=== PATIENT | male | born 1970 | race Caucasian/White ===

== ENCOUNTER 2019-07-30 10:31 | Emergency (ER) | payer OTHER ==
[2019-07-30 11:03] LABS: CHLORIDE,CL 104 mmol/L (98-107); SODIUM,NA 140 mmol/L (136-145)
[2019-07-30] MEDS: Ondansetron 4 MG/2 ML SDV IVPUSH ONE (11:09)
[2019-07-30] MEDS: Morphine 2 MG/ML Syringe IVPUSH ONE (11:10)
--- NOTE | 2019-07-30 11:20 | EDM.PDOC ---
ED HPI GENERAL MEDICAL PROBLEM - General Chief Complaint: Trauma Stated Complaint: right arm pain Time Seen by Provider: 07/30/19 10:34 Source of Information: Reports: Patient History Limitations: Reports: No Limitations - History of Present Illness INITIAL COMMENTS - FREE TEXT/NARRATIVE: Patient brought to ER via EMS from local worksite after he fell into a 5 foot hole and landed on right arm. Immediately had pain in right shoulder area. Tried to sit up but passed out briefly from the pain. Denies hitting head/neck pain/other acute pain or injury. Trauma code called initially but downgraded after initial assessment/physical exam/xrays. Denies chronic medical problems. Past Medical History - Past Health History Medical/Surgical History: Denies Medical/Surgical History Social & Family History - Tobacco Use Smoking Status *Q: Never Smoker - Caffeine Use Caffeine Use: Reports: None - Alcohol Use Alcohol Use History: Yes Alcohol Use Frequency: Rarely - Recreational Drug Use Recreational Drug Use: No Drug Use in Last 12 Months: No Review of Systems - Review of Systems Review Of Systems: See Below Constitutional: Reports: No Symptoms Eyes: Reports: No Symptoms Ears: Reports: No Symptoms Nose: Reports: No Symptoms Mouth/Throat: Reports: No Symptoms Respiratory: Reports: No Symptoms. Denies: Shortness of Breath, Pleuritic Chest Pain Cardiovascular: Reports: No Symptoms. Denies: Chest Pain GI/Abdominal: Reports: Nausea (mild nausea from pain). Denies: Abdominal Pain, Vomiting Genitourinary: Reports: No Symptoms Musculoskeletal: Reports: Shoulder Pain (right). Denies: Neck Pain, Back Pain, Hand Pain, Leg Pain, Foot Pain Skin: Reports: No Symptoms Neurological: Reports: No Symptoms. Denies: Headache, Numbness, Paresthesia, Tingling Psychiatric: Reports: No Symptoms ED EXAM, GENERAL - Physical Exam Exam: See Below Exam Limited By: No Limitations General Appearance: Alert, WD/WN, No Apparent Distress Eye Exam: Bilateral Eye: EOMI, PERRL Ears: Normal External Exam, Hearing Grossly Normal Nose: No: Nasal Deformity, Nasal Swelling, Nasal Drainage Throat/Mouth: Normal Lips, Normal Voice, No Airway Compromise Head: Atraumatic, Normocephalic Neck: Normal Inspection, Supple, Non-Tender, Full Range of Motion. No: Tender Lateral, Tender Midline Respiratory/Chest: No Respiratory Distress, Lungs Clear, Normal Breath Sounds, No Accessory Muscle Use, Chest Non-Tender Cardiovascular: Regular Rate, Rhythm, No Edema, No Murmur GI/Abdominal: Normal Bowel Sounds, Soft, Non-Tender, Pelvis Stable (Male) Exam: Deferred Rectal (Males) Exam: Deferred Back Exam: Normal Inspection. No: CVA Tenderness (L), CVA Tenderness (R), Muscle Spasm, Paraspinal Tenderness, Vertebral Tenderness Extremities: Normal Capillary Refill, Limited Range of Motion (right shoulder. Pain with active and passive movement. Says he cannot initiate much in the way of movement when he tries to move his right arm. Pain in shoulder area. No pain with palpation along humerus/elbow/forearm/wrist/hand on right. No focal findings left arm/legs.) Neurological: Alert, Oriented, Normal Cognition, Normal Gait, Other (equal strength hand grasps) Psychiatric: Normal Affect, Normal Mood Skin Exam: Warm, Dry, Intact, Normal Color. No: Ecchymosis, Erythema, Wound/ Incision Course - Orders/Labs/Meds Orders: Active Orders 24 hr Category Date Time Status Chest 2V [CR] Routine Exams 07/30/19 10:53 Taken Shoulder Comp Rt [CR] Routine Exams 07/30/19 10:52 Taken Shoulder wo Cont Rt [CT] Stat Exams 07/30/19 11:06 Ordered Labs: Laboratory Tests 07/30/19 07/30/19 Range/Units 10:40 10:40 WBC 5.8 (4.0-10.2) K/uL RBC 5.00 (4.33-5.41) M/uL Hgb 14.5 (13.1-16.8) g/dL Hct 42.4 (39.0-49.0) % MCV 84.8 (84.0-98.0) fL MCH 29.0 (28.2-33.3) pg MCHC 34.2 (31.7-36.0) g/dL RDW 13.1 (11.2-14.1) % Plt Count 269 (150-350) K/uL Neut % (Auto) 51.8 (45.0-80.0) % Lymph % (Auto) 34.4 (10.0-50.0) % [place] % (Auto) 8.9 (2.0-14.0) % Eos % (Auto) 4.6 (0.0-5.0) % Baso % (Auto) 0.3 (0.0-2.0) % Neut # (Auto) 3.01 (1.40-7.00) K/uL Lymph # (Auto) 2.00 (0.50-3.50) K/uL [place] # (Auto) 0.52 (0.00-1.00) K/uL Eos # (Auto) 0.27 (0.00-0.50) K/uL Baso # (Auto) 0.02 (0.00-0.20) K/uL Sodium 140 (136-145) mmol/L Potassium 3.7 (3.5-5.1) mmol/L Chloride 104 (98-107) mmol/L Carbon Dioxide 26.5 (21.0-32.0) mmol/L BUN 16 (7-18) mg/dL Creatinine 0.90 (0.51-1.17) mg/dL Est Cr Clr Drug Dosing TNP Estimated GFR (MDRD) > 60 mL/min Glucose 120 H (74-106) mg/dL Calcium 9.0 (8.5-10.1) mg/dL Magnesium 1.8 (1.8-2.4) mg/dL Total Bilirubin 0.5 (0.2-1.0) mg/dL AST 20 (15-37) U/L ALT 33 (12-78) U/L Alkaline Phosphatase 74 (46-116) IU/L Total Protein 7.6 (6.4-8.2) g/dL Albumin 4.0 (3.4-5.0) g/dL Amylase 38 (25-115) U/L Lipase 141 (73-393) U/L Meds: Medications Discontinued Medications Generic Name Dose Route Start Last Admin Trade Name Freq PRN Reason Stop Dose Admin Morphine Sulfate 4 mg 07/30/19 11:05 07/30/19 11:10 Morphine IVPUSH 07/30/19 11:06 4 mg ONETIME ONE Administration Ondansetron HCl 4 mg 07/30/19 11:04 07/30/19 11:09 Zofran IVPUSH 07/30/19 11:05 4 mg ONETIME ONE Administration - Radiology Interpretation Free Text/Narrative:: Xray of chest/right shoulder non-focal. CT obtained to further evaluate for acute shoulder injury given pain complaint and inability to move the shoulder. This was read as negative for acute bony injury by Radiology. They recommended follow up MRI to look for soft tissue injury/joint tear. CT Results Date: 07/30/19 CT Results Time: 11:53 - Re-Assessments/Exams Free Text/Narrative Re-Assessment/Exam: 07/30/19 12:21 No other focal injuries identified during physical exam. Vital signs stable. Patient received MS and Zofran. Labs overall unremarkable. Xray findings as noted above. Suspect AC injury/other joint injury or tears based on patient's inability to move the shoulder/arm well. Follow up at [facility] walk-[facility] clinic with [place] or [facility] [place] recommended. Patient says he plans on following up with [facility] where he gets his medical care routinely. Will likely need MRI of joint for further evaluation. Shoulder immobilizer applied by nursing staff for comfort and protection of arm. Patient declined further pain meds and will use OTC as needed. Precautions reviewed. To follow up at ER if he has sudden acute new/worsening problems. Otherwise to follow up at [facility] tomorrow or early next week. Patient in agreement with plan. Departure - Departure Time of Disposition: 12:08 Disposition: Home, Self-Care 01 Condition: Good Clinical Impression: Fall into hole as cause of accidental injury Right shoulder injury Qualifiers: Encounter type: initial encounter Qualified Code(s): S49.91XA - Unspecified injury of right shoulder and upper arm, initial encounter - Discharge Information *PRESCRIPTION DRUG MONITORING PROGRAM REVIEWED*: Not Applicable *COPY OF PRESCRIPTION DRUG MONITORING REPORT IN PATIENT MARILIN: Not Applicable Instructions: How to Use a Shoulder Immobilizer Referrals: PCP,None [Primary Care Provider] - Forms: ED Department Discharge Additional Instructions: [facility] to assess for soft tissue injury/tears. Ice/Tylenol/Ibuprofen or Aleve to help with pain. Shoulder immobilizer to protect arm. Follow up otherwise if you have sudden worsening problems. Sepsis Event Note - Focused Exam Date Exam was Performed: 07/30/19 Time Exam was Performed: 12:13 - My Orders Last 24 Hours: My Active Orders 07/30/19 10:52 Shoulder Comp Rt [CR] Routine 07/30/19 10:53 Chest 2V [CR] Routine 07/30/19 11:06 Shoulder wo Cont Rt [CT] Stat - Assessment/Plan Last 24 Hours: My Active Orders 07/30/19 10:52 Shoulder Comp Rt [CR] Routine 07/30/19 10:53 Chest 2V [CR] Routine 07/30/19 11:06 Shoulder wo Cont Rt [CT] Stat
== END 2019-07-30 12:19 | disposition home or self-care (01) ==
LOC: LL.ED 10:31
DX: S49.91XA Unspecified injury of right shoulder and upper arm, initial encounter (principal); W17.2XXA Fall into hole, initial encounter; Y99.0 Civilian activity done for income or pay
CPT/HCPCS: 36415; 56420; 71046; 73030-RT; 73200-RT; 80053; 82150; 83690; 83735; 85025; 96374; 96375; 99284-25; J2270; J2405

== ENCOUNTER 2020-12-29 12:39 | Emergency (ER) | payer OTHER ==
--- NOTE | 2020-12-29 12:55 | EDM.PDOC ---
ED HPI GENERAL MEDICAL PROBLEM - General Chief Complaint: Respiratory Problem Stated Complaint: chills, cough, SOB Time Seen by Provider: 12/29/20 12:44 Source of Information: Reports: Patient History Limitations: Reports: No Limitations - History of Present Illness INITIAL COMMENTS - FREE TEXT/NARRATIVE: Patient reports not feeling well for approx several months. Initially had one month of sinus symptoms/congestion. That improved but then had a cough. Cough suddenly worsened about one week ago. Developed fevers/chills over the past week. Hair hurts/headache/back ache. Mild nausea but no vomiting/diarrhea. Mild SOB sensation. Non-smoker. No significant sputum production headache Pain Score (Numeric/FACES): 4 - Related Data Allergies Allergy/AdvReac Type Severity Reaction Status Date / Time No Known Allergies Allergy Verified 12/29/20 12:39 Home Meds: Home Meds . [No Known Home Meds] 12/29/20 [History] Past Medical History - Past Health History Medical/Surgical History: Denies Medical/Surgical History Social & Family History - Caffeine Use Caffeine Use: Reports: None ED ROS GENERAL - Review of Systems Review Of Systems: See Below Constitutional: Reports: Fever, Chills, Malaise HEENT: Reports: No Symptoms Respiratory: Reports: Shortness of Breath, Cough. Denies: Wheezing, Pleuritic Chest Pain, Sputum, Hemoptysis Cardiovascular: Reports: No Symptoms Endocrine: Reports: No Symptoms GI/Abdominal: Reports: Nausea. Denies: Abdominal Pain, Constipation, Diarrhea, Melena, Vomiting : Reports: No Symptoms Musculoskeletal: Reports: Back Pain Skin: Reports: No Symptoms Neurological: Reports: Headache Psychiatric: Reports: No Symptoms ED EXAM, GENERAL - Physical Exam Exam: See Below Exam Limited By: No Limitations General Appearance: Alert, WD/WN, No Apparent Distress Eye Exam: Bilateral Eye: EOMI, PERRL Ears: Normal External Exam, Normal Canal, Hearing Grossly Normal Nose: No: Nasal Deformity, Nasal Swelling, Nasal Drainage Throat/Mouth: Normal Lips, Normal Voice, No Airway Compromise Head: Atraumatic, Normocephalic Neck: Supple, Non-Tender, Full Range of Motion Respiratory/Chest: No Respiratory Distress, No Accessory Muscle Use, Crackles (faint/left). No: Rales, Rhonchi, Wheezing Cardiovascular: Regular Rate, Rhythm, No Murmur GI/Abdominal: Normal Bowel Sounds, Soft, Non-Tender, No Distention (Male) Exam: Deferred Rectal (Males) Exam: Deferred Back Exam: No: CVA Tenderness (L), CVA Tenderness (R), Muscle Spasm Extremities: Normal Inspection Neurological: Alert, Oriented, Normal Gait, No Motor/Sensory Deficits Psychiatric: Normal Affect, Normal Mood Skin Exam: Warm, Dry, Intact, Normal Color Course - Vital Signs Last Recorded V/S: Last Vital Signs Temp 37.8 C 12/29/20 12:40 Pulse 99 12/29/20 12:40 Resp 18 12/29/20 12:40 BP 155/81 H 12/29/20 12:40 Pulse Ox 96 12/29/20 12:40 - Orders/Labs/Meds Orders: Active Orders 24 hr Category Date Time Status RT Post Treatment Assessment [RC] Click to Edit Care 12/29/20 12:57 Active RT Pre-Treatment Assessment [RC] Click to Edit Care 12/29/20 12:57 Active Chest 2V [CR] Stat Exams 12/29/20 12:50 Ordered UA W/MICROSCOPIC [URIN] Stat Lab 12/29/20 12:53 Ordered Isolation [COMM] Routine Oth 12/29/20 12:50 Active Labs: Laboratory Tests 12/29/20 12/29/20 12/29/20 Range/Units 12:49 13:06 13:06 WBC 2.6 L (4.0-10.2) K/uL RBC 4.95 (4.33-5.41) M/uL Hgb 14.4 (13.1-16.8) g/dL Hct 42.2 (39.0-49.0) % MCV 85.3 (84.0-98.0) fL MCH 29.1 (28.2-33.3) pg MCHC 34.1 (31.7-36.0) g/dL RDW 13.2 (11.2-14.1) % Plt Count 143 L D (150-350) K/uL Neut % (Auto) 64.6 (45.0-80.0) % Lymph % (Auto) 23.7 (10.0-50.0) % [place] % (Auto) 11.3 (2.0-14.0) % Eos % (Auto) 0.0 (0.0-5.0) % Baso % (Auto) 0.4 (0.0-2.0) % Neut # (Auto) 1.66 (1.40-7.00) K/uL Lymph # (Auto) 0.61 (0.50-3.50) K/uL [place] # (Auto) 0.29 (0.00-1.00) K/uL Eos # (Auto) 0.00 (0.00-0.50) K/uL Baso # (Auto) 0.01 (0.00-0.20) K/uL Sodium 137 (136-145) mmol/L Potassium 3.7 (3.5-5.1) mmol/L Chloride 101 (98-107) mmol/L Carbon Dioxide 26.7 (21.0-32.0) mmol/L Anion Gap 9.3 (7-15) meq/L BUN 11 (7-18) mg/dL Creatinine 0.87 (0.51-1.17) mg/dL Est Cr Clr Drug Dosing 113.52 mL/min Estimated GFR (MDRD) > 60 mL/min Glucose 99 (70-99) mg/dL Calcium 8.2 L (8.5-10.1) mg/dL Magnesium 1.9 (1.8-2.4) mg/dL Total Bilirubin 0.5 (0.2-1.0) mg/dL AST 57 H (15-37) U/L ALT 59 (12-78) U/L Alkaline Phosphatase 214 H (46-116) IU/L Total Protein 6.8 (6.4-8.2) g/dL Albumin 3.2 L (3.4-5.0) g/dL SARS-CoV-2 RNA (AYE) Positive H (NEGATIVE) Meds: Medications Discontinued Medications Generic Name Dose Route Start Last Admin Trade Name Freq PRN Reason Stop Dose Admin Albuterol 0 gm 12/29/20 12:56 Albuterol 6.7 Gm Inhaler INH 12/29/20 12:57 ONETIME ONE - Re-Assessments/Exams Free Text/Narrative Re-Assessment/Exam: 12/29/20 12:56 Labs and chest xray ordered. 12/29/20 13:48 + Cpvid. Chest xray consistent with Covid-related pneumonia. Results discussed with patient. Precautions reviewed. Can take albuterol MDI home with him and continue PRN inhalations for cough. To follow up as needed if he develops worsening problems. Does not meet criteria for other acute Covid interventions at this time. Departure - Departure Time of Disposition: 13:50 Disposition: Home, Self-Care 01 Condition: Good Clinical Impression: Coronavirus infection - Discharge Information *PRESCRIPTION DRUG MONITORING PROGRAM REVIEWED*: Not Applicable *COPY OF PRESCRIPTION DRUG MONITORING REPORT IN PATIENT MARILIN: Not Applicable Instructions: COVID-19 Frequently Asked Questions, COVID-19, How to Use a Metered Dose Inhaler Referrals: PCP,None [Primary Care Provider] - Forms: ED Department Discharge Additional Instructions: Home/rest/try to stay hydrated. Use the inhaler for cough/shortness of breath. Tylenol for fever/aches. Stay home for 10 days. You need to be symptom-free before returning to work. Call if you have questions. Return to ER if you have sudden worsening problems as we discussed. Sepsis Event Note (ED) - Evaluation Sepsis Screening Result: No Definite Risk - Focused Exam Vital Signs: Vital Signs Temp Pulse Resp BP Pulse Ox 12/29/20 12:40 37.8 C 99 18 155/81 H 96 - My Orders Last 24 Hours: My Active Orders 12/29/20 12:50 Chest 2V [CR] Stat Isolation [COMM] Routine 12/29/20 12:53 UA W/MICROSCOPIC [URIN] Stat 12/29/20 12:57 RT Post Treatment Assessment [RC] Click to Edit RT Pre-Treatment Assessment [RC] Click to Edit - Assessment/Plan Last 24 Hours: My Active Orders 12/29/20 12:50 Chest 2V [CR] Stat Isolation [COMM] Routine 12/29/20 12:53 UA W/MICROSCOPIC [URIN] Stat 12/29/20 12:57 RT Post Treatment Assessment [RC] Click to Edit RT Pre-Treatment Assessment [RC] Click to Edit
[2020-12-29] MEDS ORDERED: Albuterol 6.7 GM Inhaler INH ONE (12:56)
[2020-12-29 13:31] LABS: ANION GAP 9.3 meq/L (7-15); CHLORIDE,CL 101 mmol/L (98-107); SODIUM,NA 137 mmol/L (136-145)
== END 2020-12-29 14:05 | disposition home or self-care (01) ==
LOC: LL.ED 12:39
DX: U07.1 COVID-19 (principal)
CPT/HCPCS: 36415; 71045; 80053; 83735; 85025; 87635; 87804; 99284; A9270; 99283; U0002